=== PATIENT | male | born 1970 | race Caucasian/White ===

== ENCOUNTER 2020-11-04 15:54 | Emergency (ER) | payer OTHER ==
[~2020-11-04] VITALS: Ht 170.2 cm; Wt 50.8 kg
--- NOTE | 2020-11-04 15:54 | NUR ---
PT BIB SELF C/O ABDOMINAL PAIN AND NAUSEA/VOMTING STARTED YESTERDAY. PT IS AAOX4, NOT IN RESPIRATORY DISTRESS, HOOKED TO ELECTRICAL EQUIPMENT TESTER, KEPT RESTED AND COMFORTABLE. WILL CONTINUE TO MONITOR.
--- NOTE | 2020-11-04 16:20 | NUR ---
SEEN AND EXAMINED BY ANTHONY MOLINA
[2020-11-04] MEDS ORDERED: DICYCLOMINE HCL INJ 20 MG/2 ML AMPUL IM ONE ×2 (16:30→16:34)
[2020-11-04] MEDS ORDERED: PANTOPRAZOLE 40 MG VIAL IV ONE (16:30)
[2020-11-04] MEDS ORDERED: METOCLOPRAMIDE HCL 10 MG/2 ML VIAL IV ONE (16:30)
[2020-11-04] MEDS ORDERED: IV NS 0.9% 1,000 ML BAG IV ONE (16:30)
[2020-11-04] MEDS ORDERED: diphenhydrAMINE HCL 50 MG/ML VIAL IV ONE (16:30)
--- NOTE | 2020-11-04 16:30 | NUR ---
IV LINE ESTABLISHED BLOOD DRAWN AND SENT TO LAB.
[2020-11-04 16:35] LABS: BASOPHILS # (AUTO) 0.1 K/uL (0.0-0.2); BASOPHILS % (AUTO) 1.5 % (0.0-2.0); EOSINOPHILS % (AUTO) 2.2 % (0.0-6.0); HEMATOCRIT 29 % (39-51); HEMOGLOBIN 9.3 g/dL (13.5-17.5); LYMPHOCYTES % (AUTO) 19.5 % (20.0-44.0); MEAN CORPUSCULAR HGB CONC 32 g/dl (31.0-36.0); MEAN CORPUSCULAR VOLUME 96 fL (80-96); MONOCYTES # (AUTO) 0.3 K/uL (0.1-1.30); MONOCYTES % (AUTO) 4.9 % (2.0-12.0); NEUTROPHILS # (AUTO) 3.9 K/uL (1.8-8.9); NEUTROPHILS % (AUTO) 71.9 % (43.0-81.0); PLATELET COUNT (AUTO) 297 K/uL (150-450); RED BLOOD CELL COUNT(AUTO) 2.99 MIL/uL (4.5-6.0); WHITE BLOOD COUNT (AUTO) 5.4 K/uL (4.3-11.0)
[2020-11-04] MEDS ORDERED: METOCLOPRAMIDE HCL 10 MG/2 ML VIAL ONE (16:35)
[2020-11-04] MEDS ORDERED: PANTOPRAZOLE 40 MG VIAL ONE (16:35)
[2020-11-04] MEDS ORDERED: diphenhydrAMINE HCL 50 MG/ML VIAL ONE (16:35)
[2020-11-04] MEDS ORDERED: MORPHINE SULFATE INJ 4 MG/ML DISP.SYRIN ONE (16:41)
[2020-11-04 16:47] LABS: CALCIUM, SERUM 8.9 mg/dL (8.5-10.1); CREATININE 0.6 mg/dL (0.6-1.3); POTASSIUM 3.8 mmol/L (3.5-5.1)
[2020-11-04 16:52] LABS: ALBUMIN 2.9 g/dL (3.4-5.0); BILIRUBIN,DIRECT 0.1 mg/dL (0.0-0.2); BILIRUBIN,TOTAL 0.2 mg/dL (0.2-1.0); TOTAL PROTEIN, SERUM 6.5 g/dL (6.4-8.2)
--- NOTE | 2020-11-04 16:58 | NUR ---
PT IS WHEELED TO [facility].
[2020-11-04] MEDS ORDERED: MORPHINE SULFATE INJ 2 MG/ML DISP.SYRIN IV ONE (17:00)
[2020-11-04] MEDS ORDERED: METO-295 PO (17:55)
[2020-11-04 18:15] LABS: OCCULT BLOOD STOOL NEGATIVE (NEGATIVE)
[2020-11-04 19:02] VITALS: BP 123/68
--- NOTE | 2020-11-04 19:02 | NUR ---
IV removed. Catheter intact and site benign. Pressure and 4x4 applied to site. No bleeding noted. Patient discharged to home in stable condition. Written and verbal after care instructions given. Patient verbalizes understanding of instruction.
== END 2020-11-04 19:02 | disposition home or self-care (01) ==
LOC: ER 15:54
DX: K52.9 Noninfective gastroenteritis and colitis, unspecified (principal); D64.9 Anemia, unspecified; E11.9 Type 2 diabetes mellitus without complications
CPT/HCPCS: 36415; 74176; 80048; 80076; 82272; 82962; 83690; 85025; 96361; 96372; 96374; 96375; 99285; C9113; J0500; J1200; J2270; J2765; J7030

== ENCOUNTER 2020-12-17 17:11 | Emergency (ER) | payer OTHER ==
[~2020-12-17] VITALS: Ht 170.2 cm; Wt 55.3 kg
[~2020-12-17 17:11] MED LIST: METO-295 PO
[2020-12-17] MEDS ORDERED: IV NS 0.9% 1,000 ML IV ONE ×2 (17:30→19:30)
[2020-12-17] MEDS ORDERED: METOCLOPRAMIDE HCL 10 MG/2 ML VIAL IV ONE (17:30)
[2020-12-17] MEDS ORDERED: PANTOPRAZOLE 40 MG VIAL IV ONE (17:30)
[2020-12-17 17:40] LABS: WHITE BLOOD COUNT (AUTO) 7.9 K/uL (4.3-11.0)
[2020-12-17 17:44] LABS: BASOPHILS % (AUTO) 0.6 % (0.0-2.0); EOSINOPHILS % (AUTO) 1.5 % (0.0-6.0); HEMATOCRIT 39 % (39-51); HEMOGLOBIN 12.3 g/dL (13.5-17.5); LYMPHOCYTES # (AUTO) 0.9 K/uL (0.8-4.8); LYMPHOCYTES % (AUTO) 11.5 % (20.0-44.0); MEAN CORPUSCULAR HGB CONC 32 g/dl (31.0-36.0); MEAN CORPUSCULAR VOLUME 97 fL (80-96); MONOCYTES # (AUTO) 0.2 K/uL (0.1-1.30); MONOCYTES % (AUTO) 2.7 % (2.0-12.0); NEUTROPHILS # (AUTO) 6.7 K/uL (1.8-8.9); NEUTROPHILS % (AUTO) 83.7 % (43.0-81.0); PLATELET COUNT (AUTO) 244 K/uL (150-450); RED BLOOD CELL COUNT(AUTO) 4.01 MIL/uL (4.5-6.0)
[2020-12-17] MEDS ORDERED: METOCLOPRAMIDE HCL 10 MG/2 ML VIAL ONE (17:49)
[2020-12-17] MEDS ORDERED: PANTOPRAZOLE 40 MG VIAL ONE (17:49)
[2020-12-17 18:06] LABS: ALBUMIN 4.4 g/dL (3.4-5.0); BILIRUBIN,DIRECT 0.1 mg/dL (0.0-0.2); BILIRUBIN,TOTAL 0.2 mg/dL (0.2-1.0); CALCIUM, SERUM 9.5 mg/dL (8.5-10.1); CREATININE 1.5 mg/dL (0.6-1.3); POTASSIUM 4.9 mmol/L (3.5-5.1); TOTAL PROTEIN, SERUM 9.2 g/dL (6.4-8.2)
[2020-12-17 18:08] LABS: ALCOHOL, BLOOD < 3 mg/dL (0-0)
--- NOTE | 2020-12-17 18:12 | NUR ---
URINE COLLECTED AND SENT TO LAB
[2020-12-17] MEDS ORDERED: MORPHINE SULFATE INJ 2 MG/ML DISP.SYRIN ONE (18:21)
[2020-12-17 18:24] LABS: BILIRUBIN,URINE Negative (NEGATIVE); COLOR,URINE YELLOW (YELLOW); LEUKOCYTE ESTERASE ,URINE Negative (NEGATIVE); NITRITE, URINE Negative (NEGATIVE); PH,URINE 5.5 (5.0-8.0); PROTEIN,URINE Negative (NEGATIVE); UGLUCOSE >=1000 mg/dL (NEGATIVE); UROBILINOGEN,URINE 0.2 EU/dL (0.2)
[2020-12-17] MEDS ORDERED: MORPHINE SULFATE INJ 2 MG/ML DISP.SYRIN IV ONE (18:30)
[2020-12-17 18:38] LABS: BACTERIA,URINE Rare /HPF (None Seen); SQUAMOUS EPITHELIAL CELL,UR Few /HPF (None Seen); WBC,URINE NONE SEEN /HPF (0-3)
[2020-12-17] MEDS ORDERED: INSULIN REGULAR, HUMAN 100 UNIT/ML 10 ML VIAL SQ ONE (19:00)
[2020-12-17] MEDS ORDERED: INSU100I26 SQ (19:04)
[2020-12-17] MEDS ORDERED: HYDR-3972 PO (19:04)
[2020-12-17] MEDS ORDERED: INSU100V27 SQ (19:04)
[2020-12-17] MEDS ORDERED: METO10TA3 PO (19:04)
[2020-12-17] MEDS ORDERED: PANT40TA49 PO (19:04)
[2020-12-17] MEDS ORDERED: TRAZ-252 PO (19:04)
[2020-12-17] MEDS ORDERED: ONDA4TAB11 PO (19:04)
[2020-12-17] MEDS ORDERED: AMLO-212 PO (19:04)
[2020-12-17] MEDS ORDERED: ESCI10TA PO (19:04)
[2020-12-17] MEDS ORDERED: DULO30CA52 PO (19:04)
[2020-12-17] MEDS ORDERED: FAMO20TA8 PO (19:04)
[2020-12-17] MEDS ORDERED: INSULIN REGULAR, HUMAN 100 UNIT/ML 10 ML VIAL ONE (19:11)
[2020-12-17] MEDS ORDERED: ONDA4TAB5 PO (19:29)
[2020-12-17] MEDS ORDERED: LOPE2CAP40 PO (19:29)
[2020-12-17] MEDS ORDERED: PANT20TA2 PO (19:30)
--- NOTE | 2020-12-17 19:30 | NUR ---
RECIEVED REPORT FROM GILBERT VILLEDA.
--- NOTE | 2020-12-17 19:42 | NUR ---
Patient discharged to home in stable condition. Written and verbal after care instructions given. Patient verbalizes understanding of instruction. RX given.
[2020-12-17 19:43] VITALS: BP 122/60
== END 2020-12-17 19:43 | disposition home or self-care (01) ==
LOC: ER 17:15
DX: E11.65 Type 2 diabetes mellitus with hyperglycemia (principal); R11.10 Vomiting, unspecified; R19.7 Diarrhea, unspecified; D64.9 Anemia, unspecified; E86.0 Dehydration; I10 Essential (primary) hypertension; Z98.890 Other specified postprocedural states; Z79.899 Other long term (current) drug therapy; Z79.4 Long term (current) use of insulin
CPT/HCPCS: 36415; 80048; 80076; 80307; 80320; 81001; 83690; 84484; 85025; 93005; 96361; 96372; 96374; 96375; 99284; C9113; J1815; J2270; J2765; J7030 ×2; G0480

== ENCOUNTER 2021-06-07 13:32 | Emergency (ER) | payer OTHER ==
[~2021-06-07] VITALS: Ht 170.2 cm; Wt 59.0 kg
[~2021-06-07 13:32] MED LIST changes: +AMLO-212 PO; +DULO30CA52 PO; +ESCI10TA PO; +FAMO20TA8 PO; +HYDR-3972 PO; +INSU100I26 SQ; +INSU100V27 SQ; +LOPE2CAP40 PO; -METO-295 PO; +METO10TA3 PO; +ONDA4TAB11 PO; +ONDA4TAB5 PO; +PANT20TA2 PO; +PANT40TA49 PO; +TRAZ-252 PO
--- NOTE | 2021-06-07 13:50 | NUR ---
CHAPO 841 FROM HOME C/O BODY PAIN AND NAUSEA/VOMITING X2 DAYS. SEEN IN [facility] YESTERDAY FOR SAME CC. PT IS + COVID 5 DAYS AGO. THE PATIENT IS ALERT AND ORIENTED X4. ATTACHED TO THE MONITOR. WILL CONTINUE TO MONITOR THE PATIENT.
[2021-06-07] MEDS ORDERED: IV NS 0.9% 1,000 ML BAG IV ONE (15:30)
[2021-06-07] MEDS ORDERED: MAG HYDROX/AL HYDROX/SIMETH 30 ML UDC PO ONE (15:30)
[2021-06-07] MEDS ORDERED: FAMOTIDINE/PF INJ 20 MG/2 ML VIAL IV ONE ×2 (15:30→15:35)
[2021-06-07] MEDS ORDERED: ONDANSETRON HCL/PF 4 MG/2 ML VIAL IVP ONE (15:30)
[2021-06-07] MEDS ORDERED: LIDOCAINE VISCOUS 2% UD 15 ML UDC MM ONE (15:30)
[2021-06-07] MEDS ORDERED: ONDANSETRON HCL/PF 4 MG/2 ML VIAL ONE (15:35)
[2021-06-07] MEDS ORDERED: MAG HYDROX/AL HYDROX/SIMETH 30 ML UDC ONE (15:35)
[2021-06-07] MEDS ORDERED: LIDOCAINE VISCOUS 2% UD 15 ML UDC ONE (15:35)
--- NOTE | 2021-06-07 15:45 | NUR ---
AUTOMATIC MACHINE ATTENDANT AT THE BEDSIDE
[2021-06-07 15:49] LABS: BASOPHILS # (AUTO) 0.1 K/uL (0.0-0.2); BASOPHILS % (AUTO) 1.2 % (0.0-2.0); EOSINOPHILS % (AUTO) 2.1 % (0.0-6.0); HEMATOCRIT 35 % (39-51); HEMOGLOBIN 11.4 g/dL (13.5-17.5); LYMPHOCYTES # (AUTO) 1.3 K/uL (0.8-4.8); LYMPHOCYTES % (AUTO) 19.6 % (20.0-44.0); MEAN CORPUSCULAR HGB CONC 33 g/dl (31.0-36.0); MEAN CORPUSCULAR VOLUME 92 fL (80-96); MONOCYTES # (AUTO) 0.3 K/uL (0.1-1.30); MONOCYTES % (AUTO) 4.9 % (2.0-12.0); NEUTROPHILS # (AUTO) 4.9 K/uL (1.8-8.9); NEUTROPHILS % (AUTO) 72.2 % (43.0-81.0); PLATELET COUNT (AUTO) 226 K/uL (150-450); RED BLOOD CELL COUNT(AUTO) 3.79 MIL/uL (4.5-6.0); WHITE BLOOD COUNT (AUTO) 6.8 K/uL (4.3-11.0)
[2021-06-07 17:16] LABS: BILIRUBIN,DIRECT 0.1 mg/dL (0.0-0.2); BILIRUBIN,TOTAL 0.2 mg/dL (0.2-1.0); CALCIUM, SERUM 8.7 mg/dL (8.5-10.1); CREATININE 5.3 mg/dL (0.6-1.3); POTASSIUM 4.1 mmol/L (3.5-5.1); TOTAL PROTEIN, SERUM 6.4 g/dL (6.4-8.2)
[2021-06-07] MEDS ORDERED: ONDA4TAB5 PO ×2 (18:05→19:10)
[2021-06-07] MEDS ORDERED: FAMO20TA8 PO ×2 (18:05→19:10)
--- NOTE | 2021-06-07 18:23 | NUR ---
URINE COLLECTED AND SENT TO THE LAB
--- NOTE | 2021-06-07 18:28 | NUR ---
The patient is alert and oriented x4. Denies pain. In room air and denies SOB. Respiration regular and unlabored. IV removed. Catheter intact and site benign. Pressure and 4x4 applied to site. No bleeding noted.Patient discharged to home in stable condition. Written and verbal after care instructions given. Patient verbalizes understanding of instruction.
[2021-06-07] MEDS ORDERED: MORPHINE SULFATE INJ 2 MG/ML DISP.SYRIN IV ONE (18:30)
[2021-06-07 18:31] VITALS: BP 132/90
== END 2021-06-07 19:22 | disposition home or self-care (01) ==
LOC: ER 13:33
DX: R10.13 Epigastric pain (principal); R11.2 Nausea with vomiting, unspecified; I10 Essential (primary) hypertension; E11.43 Type 2 diabetes mellitus with diabetic autonomic (poly)neuropathy; K31.84 Gastroparesis; E11.65 Type 2 diabetes mellitus with hyperglycemia; Z86.73 Personal history of transient ischemic attack (TIA), and cerebral infarction without residual deficits; Z88.6 Allergy status to analgesic agent; Z79.891 Long term (current) use of opiate analgesic; Z79.51 Long term (current) use of inhaled steroids; Z79.4 Long term (current) use of insulin; Z79.899 Other long term (current) drug therapy
CPT/HCPCS: 36415; 71045; 80048; 80076; 83690; 85025; 85730; 96361; 96374; 96375; 99284; J2405; J3490; J7030

== ENCOUNTER 2021-12-15 17:12 | Emergency (ER) | payer OTHER ==
[~2021-12-15] VITALS: Ht 170.2 cm; Wt 54.4 kg
--- NOTE | 2021-12-15 17:15 | NUR ---
BIBRA 9 W/ C/O ABDOMINAL PAIN SINCE LAST NIGHT, RATED 9/10 ON PAIN SCALE. PT STATED HE FEELS NAUSOUS, BS 218 PER EMS. TO ER BED 10.
[2021-12-15 18:05] LABS: BASOPHILS # (AUTO) 0.1 K/uL (0.0-0.2); BASOPHILS % (AUTO) 1.9 % (0.0-2.0); EOSINOPHILS % (AUTO) 2.2 % (0.0-6.0); HEMATOCRIT 29 % (39-51); HEMOGLOBIN 9.4 g/dL (13.5-17.5); LYMPHOCYTES # (AUTO) 1.1 K/uL (0.8-4.8); LYMPHOCYTES % (AUTO) 20.1 % (20.0-44.0); MEAN CORPUSCULAR HGB CONC 33 g/dl (31.0-36.0); MEAN CORPUSCULAR VOLUME 97 fL (80-96); MONOCYTES # (AUTO) 0.3 K/uL (0.1-1.30); MONOCYTES % (AUTO) 5.7 % (2.0-12.0); NEUTROPHILS # (AUTO) 3.8 K/uL (1.8-8.9); NEUTROPHILS % (AUTO) 70.1 % (43.0-81.0); PLATELET COUNT (AUTO) 228 K/uL (150-450); RED BLOOD CELL COUNT(AUTO) 2.99 MIL/uL (4.5-6.0); WHITE BLOOD COUNT (AUTO) 5.4 K/uL (4.3-11.0)
[2021-12-15 18:24] LABS: CALCIUM, SERUM 8.3 mg/dL (8.5-10.1); POTASSIUM 5.6 mmol/L (3.5-5.1)
[2021-12-15 18:27] LABS: ALBUMIN 2.5 g/dL (3.4-5.0); BILIRUBIN,DIRECT 0.1 mg/dL (0.0-0.2); BILIRUBIN,TOTAL 0.2 mg/dL (0.2-1.0); TOTAL PROTEIN, SERUM 6.1 g/dL (6.4-8.2)
[2021-12-15] MEDS ORDERED: MAG HYDROX/AL HYDROX/SIMETH 30 ML UDC ONE (19:15)
--- NOTE | 2021-12-15 19:18 | NUR ---
PT REQUESTED MEDICATION FOR ABD PAIN; DR BA MADE AWARE W/ ORDER NOTED.
[2021-12-15] MEDS ORDERED: MAG HYDROX/AL HYDROX/SIMETH 30 ML UDC PO ONE (19:30)
--- NOTE | 2021-12-15 19:51 | NUR ---
Patient discharged to home in stable condition. Written and verbal after care instructions given. Patient verbalizes understanding of instruction.
--- NOTE | 2021-12-15 19:57 | NUR ---
[facility] ETA: 1 HOUR
--- NOTE | 2021-12-15 21:12 | NUR ---
[facility] at bed side to belt picker the pt
[2021-12-15] MEDS ORDERED: AMLODIPINE BESYLATE 5 MG TABLET ONE (21:27)
[2021-12-15] MEDS ORDERED: BENAZEPRIL HCL 10 MG TABLET ONE (21:27)
--- NOTE | 2021-12-15 21:29 | NUR ---
pt was picked up by JAMES via [facility] and discharged home
[2021-12-15] MEDS ORDERED: BENAZEPRIL HCL 10 MG TABLET PO ONE (21:30)
[2021-12-15] MEDS ORDERED: AMLODIPINE BESYLATE 5 MG TABLET PO ONE (21:30)
[2021-12-15 21:31] VITALS: BP 177/110
== END 2021-12-15 21:31 | disposition home or self-care (01) ==
LOC: ER 18:32
DX: R10.13 Epigastric pain (principal); E87.5 Hyperkalemia; M79.672 Pain in left foot; I10 Essential (primary) hypertension; E11.43 Type 2 diabetes mellitus with diabetic autonomic (poly)neuropathy; K31.84 Gastroparesis; Z86.73 Personal history of transient ischemic attack (TIA), and cerebral infarction without residual deficits; Z88.8 Allergy status to other drugs, medicaments and biological substances; Z79.4 Long term (current) use of insulin
CPT/HCPCS: 36415; 73630-TC; 80048-TC; 80076-TC; 83690-TC; 85025-TC

== ENCOUNTER 2022-05-05 15:20 | Inpatient (IN) | payer OTHER ==
[~2022-05-05] VITALS: Ht 170.2 cm; Wt 53.1 kg
--- NOTE | 2022-05-05 15:40 | NUR ---
BG 547 NOTIFED
[2022-05-05 16:21] LABS: BASOPHILS % (AUTO) 0.3 % (0.0-2.0); EOSINOPHILS % (AUTO) 0.1 % (0.0-6.0); HEMATOCRIT 34 % (39-51); HEMOGLOBIN 10.5 g/dL (13.5-17.5); LYMPHOCYTES # (AUTO) 0.9 K/uL (0.8-4.8); LYMPHOCYTES % (AUTO) 7.7 % (20.0-44.0); MEAN CORPUSCULAR HGB CONC 32 g/dl (31.0-36.0); MEAN CORPUSCULAR VOLUME 89 fL (80-96); MONOCYTES # (AUTO) 0.4 K/uL (0.1-1.30); MONOCYTES % (AUTO) 3.8 % (2.0-12.0); NEUTROPHILS % (AUTO) 88.1 % (43.0-81.0); PLATELET COUNT (AUTO) 221 K/uL (150-450); RED BLOOD CELL COUNT(AUTO) 3.76 MIL/uL (4.5-6.0); WHITE BLOOD COUNT (AUTO) 11.4 K/uL (4.3-11.0)
--- NOTE | 2022-05-05 16:59 | NUR ---
URINE SAMPLE OBTAINED AND SENT TO LAB
[2022-05-05 17:09] LABS: ALBUMIN 3.1 g/dL (3.4-5.0); BILIRUBIN,DIRECT 0.1 mg/dL (0.0-0.2); BILIRUBIN,TOTAL 0.3 mg/dL (0.2-1.0); CALCIUM, SERUM 9.8 mg/dL (8.5-10.1); CREATININE 1.5 mg/dL (0.6-1.3); POTASSIUM 5.6 mmol/L (3.5-5.1); TOTAL PROTEIN, SERUM 7.5 g/dL (6.4-8.2)
[2022-05-05] MEDS ORDERED: INSULIN REGULAR, HUMAN 100 UNIT/ML 10 ML VIAL SQ ONE (18:30)
[2022-05-05 18:46] LABS: BILIRUBIN,URINE NEGATIVE (NEGATIVE); COLOR,URINE YELLOW (YELLOW); LEUKOCYTE ESTERASE ,URINE NEGATIVE (NEGATIVE); NITRITE, URINE NEGATIVE (NEGATIVE); PROTEIN,URINE 1+ mg/dl (NEGATIVE); UGLUCOSE 3+ mg/dL (NEGATIVE); UROBILINOGEN,URINE 0.2 EU/dL (0.2)
[2022-05-05] MEDS ORDERED: TRAZODONE 50 MG TABLET PO PRN (19:00)
[2022-05-05] MEDS ORDERED: DEXTROSE 50%-WATER 50 ML DISP.SYRIN IV PRN (19:00)
[2022-05-05] MEDS ORDERED: ACETAMINOPHEN 325 MG TABLET PO PRN (19:00)
[2022-05-05 19:10] LABS: BACTERIA,URINE None seen /HPF (None Seen); SQUAMOUS EPITHELIAL CELL,UR Rare /HPF (None Seen); WBC,URINE NONE SEEN /HPF (0-3)
--- NOTE | 2022-05-05 19:10 | NUR ---
COVID SWAB TAKEN AND SENT TO LAB
--- NOTE | 2022-05-05 19:31 | NUR ---
COVID ANTIGEN SWAB COLLECTED AND SENT TO LAB
--- NOTE | 2022-05-05 19:49 | NUR ---
ROOM [facility]
[2022-05-05 20:06] LABS: CALCIUM, SERUM 9.5 mg/dL (8.5-10.1); CREATININE 1.3 mg/dL (0.6-1.3); POTASSIUM 4.9 mmol/L (3.5-5.1)
[2022-05-05] MEDS: BLOOD SUGAR DIAGNOSTIC 1 EACH STRIP IN SCH (20:29)
[2022-05-05] MEDS ORDERED: ONDANSETRON HCL/PF - ER 4 MG/2 ML VIAL IV ONE (21:00)
[2022-05-05] MEDS ORDERED: MORPHINE SULFATE INJ 2 MG/ML DISP.SYRIN IV ONE (21:00)
--- NOTE | 2022-05-05 21:38 | NUR ---
REPORT GIVEN TO GILBERT KOO
--- NOTE | 2022-05-05 21:55 | NUR ---
GETTING TRANSFERRED TO 306 UNDER ACLS.
[2022-05-05 22:00] VITALS: BP 142/101
--- NOTE | 2022-05-05 22:00 | NUR ---
car greaser notes Received Pt from ER nurse GILBERT Mtz. Pt is alert and orientedX4. On room air. No SOB. No S/s of distress noted. Pt complaining of abdominal pain and requesting morphine for pain. Tele monitor showed SR hr at 87. IV site at RAC# 20 is clean, intact and flushes well. Pt refuses skin assessment. Explained risks and benefits. Pt also refuses to have belonging check. Explained risks and benefits. Pt keep refusing. Admission order received from . Reorient Pt to the room and the use of call light. Pt verbalized understanding. Safety precautions is maintained. Bed at low position, brakes locked, side rails upX2, hob elevated, bed alarm is on and call light is within reach. Will continue to monitor.
[2022-05-05 22:10] VITALS: BP 142/101
[2022-05-05] MEDS: IV NS 0.9% 1,000 ML IV SCH (22:12)
[2022-05-05] MEDS: MORPHINE SULFATE INJ 2 MG/ML DISP.SYRIN IV PRN (22:15)
--- NOTE | 2022-05-05 23:02 | NUR ---
RN notes Pt agree to have belongings check. Pt refuses wallet check. Pt's belongings was signed by Pt. Will continue to monitor.
[2022-05-05 23:45] LABS: CALCIUM, SERUM 9.3 mg/dL (8.5-10.1); CREATININE 1.4 mg/dL (0.6-1.3); POTASSIUM 4.4 mmol/L (3.5-5.1)
[2022-05-06] VITALS: BP_SYST 130; BP_DIAS 73; BP_DIAS 75
[2022-05-06] MEDS: BLOOD SUGAR DIAGNOSTIC 1 EACH STRIP IN SCH ×6 (01:55→21:00)
[2022-05-06] MEDS: INSULIN REGULAR, HUMAN 100 UNIT/ML 3 ML VIAL SQ PRN ×6 (02:05→17:15)
[2022-05-06] MEDS: MORPHINE SULFATE INJ 2 MG/ML DISP.SYRIN IV PRN ×6 (02:19→22:41)
--- NOTE | 2022-05-06 02:21 | NUR ---
RN notes Called [facility] medical record ( [phone]) for Pt's medical record. Called two times but nobody answer the phone. will try again in the morning.
[2022-05-06] MEDS: ONDANSETRON HCL/PF 4 MG/2 ML VIAL IVP PRN ×2 (02:31→21:48)
[2022-05-06 03:23] LABS: BASOPHILS % (AUTO) 0.1 % (0.0-2.0); HEMATOCRIT 28 % (39-51); HEMOGLOBIN 9.1 g/dL (13.5-17.5); LYMPHOCYTES # (AUTO) 1.1 K/uL (0.8-4.8); LYMPHOCYTES % (AUTO) 8.8 % (20.0-44.0); MEAN CORPUSCULAR HGB CONC 32 g/dl (31.0-36.0); MEAN CORPUSCULAR VOLUME 88 fL (80-96); MONOCYTES # (AUTO) 0.4 K/uL (0.1-1.30); MONOCYTES % (AUTO) 3.4 % (2.0-12.0); NEUTROPHILS % (AUTO) 87.7 % (43.0-81.0); PLATELET COUNT (AUTO) 226 K/uL (150-450); WHITE BLOOD COUNT (AUTO) 12.5 K/uL (4.3-11.0)
[2022-05-06 03:34] LABS: ALBUMIN 2.6 g/dL (3.4-5.0); BILIRUBIN,TOTAL 0.3 mg/dL (0.2-1.0); CREATININE 1.3 mg/dL (0.6-1.3); MAGNESIUM 2.6 mg/dL (1.8-2.4); PHOSPHORUS 4.3 mg/dL (2.5-4.9); POTASSIUM 4.2 mmol/L (3.5-5.1); TOTAL PROTEIN, SERUM 6.5 g/dL (6.4-8.2)
[2022-05-06 04:56] VITALS: BP 148/80
--- NOTE | 2022-05-06 07:20 | NUR ---
RN OPENING NOTES RECEIVED PATIENT IN BED, ASLEEP, EASILY AROUSED. A/O X4, VERBALLY RESPONSIVE, NO SIGNS OF ACUTE DISTRESS NOTED. ON O2 @ 2LPM VIA N/C,BREATHING EVEN AND UNLABORED. NOTED WITH IV ACCESS ON RIGHT ANTECUBITAL AREA #20G, WITH NS @ 75 ML/HR RUNNING. NO S/SX OF PAIN OR DISCOMFORT AT THIS TIME. ON TELE MONITOR SHOWING SINUS RHYTHM WITH PVC'S, HR @68. SAFETY MEASURE IN PLACE. BED IN LOWEST AND LOCKED POSITION, SIDE RAILS UP X2, CALL LIGHT PLACED WITHIN EASY REACH. WILL CONTINUE TO MONITOR PATIENT.
[2022-05-06 08:00] VITALS: BP 137/76
[2022-05-06] MEDS: ESCITALOPRAM OXALATE (10 MG) 10 MG TABLET PO SCH (08:36)
[2022-05-06] MEDS: DULOXETINE HCL 30 MG CAPSULE.DR PO SCH ×2 (08:36→17:02)
[2022-05-06] MEDS: PANTOPRAZOLE 40 MG TABLET.DR PO SCH (08:36)
[2022-05-06] MEDS: FAMOTIDINE (20 MG) 20 MG TABLET PO SCH ×2 (08:36→17:02)
[2022-05-06] MEDS: AMLODIPINE BESYLATE 5 MG TABLET PO SCH (08:37)
[2022-05-06 08:44] LABS: CALCIUM, SERUM 9.1 mg/dL (8.5-10.1); CREATININE 1.2 mg/dL (0.6-1.3); POTASSIUM 4.2 mmol/L (3.5-5.1)
[2022-05-06] MEDS: IV NS 0.9% 1,000 ML IV SCH ×2 (10:26→21:57)
--- NOTE | 2022-05-06 10:34 | NUR ---
RN NOTE PATIENT WITH C/O ABDOMINAL PAIN, MORPHINE 2MG IVP GIVEN ORDERED. WILL CONTINUE TO MONITOR AND ASSESS PATIENT.
[2022-05-06 11:41] LABS: CALCIUM, SERUM 8.9 mg/dL (8.5-10.1); CREATININE 1.1 mg/dL (0.6-1.3); POTASSIUM 4.5 mmol/L (3.5-5.1)
[2022-05-06 15:41] LABS: CALCIUM, SERUM 8.6 mg/dL (8.5-10.1); CREATININE 1.2 mg/dL (0.6-1.3); POTASSIUM 4.1 mmol/L (3.5-5.1)
[2022-05-06 16:00] VITALS: BP 147/83
--- NOTE | 2022-05-06 18:48 | NUR ---
RN CLOSING NOTE PATIENT RESTING IN BED, A/O X4, VERBALLY RESPONSIVE, NO SIGNS OF ACUTE DISTRESS NOTED. CONTINUE ON O2 @ 2LPM VIA N/C, BREATHING EVEN AND UNLABORED. IV ACCESS ON RIGHT ANTECUBITAL AREA #20G, RUNNING WITH NS @ 75 ML/HR. NO S/SX OF PAIN OR DISCOMFORT AT THIS TIME. ON TELE MONITOR SHOWING SINUS RHYTHM HR @72. ALL DUE MEDS GIVEN TOLERATED WELL. PAIN MEDICATION GIVEN ORDERED. SAFETY MEASURE IN PLACE. BED IN LOWEST AND LOCKED POSITION, SIDE RAILS UP X2, CALL LIGHT PLACED WITHIN EASY REACH. WILL ENDORSE TO NEXT SHIFT FOR CONTINUITY OF CARE.
[2022-05-06 19:48] LABS: CALCIUM, SERUM 8.7 mg/dL (8.5-10.1); POTASSIUM 4.1 mmol/L (3.5-5.1)
--- NOTE | 2022-05-06 19:58 | NUR ---
CHIEF CONSTRUCTION INSPECTOR OPENING NOTES: RECEIVED PATIENT SLEEP IN BED COMFORTABLY, AROUSABLE TO VERBAL STIMULI, BED IN LOW POSITION, CALL LIGHTS WITHIN REACH, NO COMPLAIN OF PAIN AND DISCOMFORT AT THIS TIME, ON 02 INHALATION AT 2LPM SATURATING WELL, PATIENT ON TELE MONITOR- SR-69, IV LINE AT RAC#20 WITH ONGOING NSS@75ML/HR INFUSING WELL, PATIENT IS A/OX4 ON BED REST, ABLE TO MAKE NEEDS KNOWN, KEPT CLEAN AND DRY ALL NEEDS MET, WILL CONTINUE TO MONITOR.
[2022-05-06 20:00] VITALS: BP 156/88
--- NOTE | 2022-05-06 21:58 | NUR ---
RN NOTES: 2100 BLOOD SUGAR-98/ NO INSULIN GIVEN PER SLIDING SCALE
[2022-05-06 23:33] LABS: CALCIUM, SERUM 8.6 mg/dL (8.5-10.1); POTASSIUM 4.3 mmol/L (3.5-5.1)
[2022-05-07] VITALS: BP 157/89
[2022-05-07] MEDS: BLOOD SUGAR DIAGNOSTIC 1 EACH STRIP IN SCH ×6 (01:00→20:49)
--- NOTE | 2022-05-07 01:34 | NUR ---
RN NOTES: 0100 BLOOD SUGAR-172/ 4 UNITS INSULIN PATIENT REFUSED INSULIN SHOT EXPLAIN RISK AND BENEFITS BUT PATIENT STILE REFUSED WILL CONTINUE TO MONITOR.
[2022-05-07] MEDS: MORPHINE SULFATE INJ 2 MG/ML DISP.SYRIN IV PRN ×5 (02:51→21:39)
[2022-05-07 03:37] LABS: CALCIUM, SERUM 8.5 mg/dL (8.5-10.1); CREATININE 0.9 mg/dL (0.6-1.3); POTASSIUM 4.3 mmol/L (3.5-5.1)
[2022-05-07 04:00] VITALS: BP 160/90
[2022-05-07] MEDS: ONDANSETRON HCL/PF 4 MG/2 ML VIAL IVP PRN (04:57)
[2022-05-07] MEDS: INSULIN REGULAR, HUMAN 100 UNIT/ML 3 ML VIAL SQ PRN ×3 (05:28→17:34)
--- NOTE | 2022-05-07 05:31 | NUR ---
RN NOTES: BLOOD SUGAR-224/8 UNITS INSULIN GIVEN PER SLIDING SCALE.
[2022-05-07 06:52] LABS: CALCIUM, SERUM 8.7 mg/dL (8.5-10.1); POTASSIUM 4.3 mmol/L (3.5-5.1)
--- NOTE | 2022-05-07 07:00 | NUR ---
RN CLOSING NOTES: PATIENT SLEEP IN BED, AROUSABLE TO VERBAL STIMULI, BED IN LOW POSITION CALL LIGHTS WITHIN REACH, NO COMPLAIN OF PAIN AND DISCOMFORT AT THIS TIME, ON O2 INAHALTION AT 2LPM SATURATING WELL, PATIENT ON TELE MONITOR- SR-85 NO SYMPTOMS WAS OBSERVED, PATIENT KEPT CLEAN AND DRY ALL NEEDS MET ENDORSE TO INCOMING SHIFT.
[2022-05-07] MEDS: DULOXETINE HCL 30 MG CAPSULE.DR PO SCH ×2 (08:04→17:20)
[2022-05-07] MEDS: ESCITALOPRAM OXALATE (10 MG) 10 MG TABLET PO SCH (08:04)
[2022-05-07] MEDS: AMLODIPINE BESYLATE 5 MG TABLET PO SCH (08:04)
[2022-05-07] MEDS: FAMOTIDINE (20 MG) 20 MG TABLET PO SCH ×2 (08:04→17:20)
[2022-05-07] MEDS: PANTOPRAZOLE 40 MG TABLET.DR PO SCH (08:04)
[2022-05-07 08:26] VITALS: BP 158/90
[2022-05-07] MEDS: IV NS 0.9% 1,000 ML IV SCH (11:04)
[2022-05-07] MEDS: METOCLOPRAMIDE HCL 10 MG/2 ML VIAL IV SCH ×3 (13:54→20:31)
[2022-05-07 15:21] LABS: CALCIUM, SERUM 8.8 mg/dL (8.5-10.1); CREATININE 0.9 mg/dL (0.6-1.3); POTASSIUM 4.3 mmol/L (3.5-5.1)
[2022-05-07 16:16] VITALS: BP 154/92
[2022-05-07 18:22] LABS: CALCIUM, SERUM 8.7 mg/dL (8.5-10.1); CREATININE 0.9 mg/dL (0.6-1.3); POTASSIUM 4.3 mmol/L (3.5-5.1)
--- NOTE | 2022-05-07 18:46 | NUR ---
END OF SHIFT SUMMARY A/O X4, ON RA SATURATING WELL. ABLE TO MAKE NEEDS KNOWN. PAIN MANAGED WELL WITH MORPHINE. RTC REGLAN GIVEN, NO EPISODES OF NAUSEA AND VOMITING. SR ON TELE. IV ACCESS ON R AC #20G, NS RUNNING AT 75 ML/HR. INDEPENDENT WITH REPOSITIONING. BLOOD GLUCOSE MONITORED, INSULIN GIVEN PER MD-SLIDING SCALE. FALL PRECAUTIONS MAINTAINED AT ALL TIMES. SAFETY MEASURES MAINTAINED. BED IN LOWEST POSITION, BRAKES LOCKED. SIDE RAILS UP X2. CALL LIGHT WITHIN REACH. WILL ENDORSE CONTINUITY OF CARE TO ONCOMING SHIFT.
--- NOTE | 2022-05-07 19:30 | NUR ---
BUSINESS OFFICE TECHNOLOGY INSTRUCTOR OPENING NOTE RECEIVED PATIENT IN BED, AWAKE, ALERT AND ORIENTED. ABLE TO COMMUNICATE NEEDS WITH THE STAFFS. AFEBRILE AND NOT IN ANY FORM OF ACUTE DISTRESS. SATURATING WELL. NO SOB/WHEEZING NOTED. WITH IV ACCESS ON RAC 20G RUNNING WITH NS AT 75ML/HR. SAFETY MEASURES IN PLACE. KEPT BED IN LOCKED AND IN LOW POSITION. SIDE RAILS UPS X2. ADVISED TO USE THE CALL LIGHT WHEN IN NEED OF ASSISTANCE.
[2022-05-07 20:00] VITALS: BP 163/90
--- NOTE | 2022-05-07 20:49 | NUR ---
BAKERY DEMONSTRATOR NOTE BG CHECKED 138 AND PATIENT REFUSED COVERAGE AND SAID THAT HE DOESN'T WANT HIS SUGAR TO DROP SINCE HE HAS HX OF HYPOGLYCEMIA. GLUCOSE LEVEL WILL BE RECHECKED AGAIN AT 0100.
[2022-05-07 23:53] LABS: CALCIUM, SERUM 8.7 mg/dL (8.5-10.1); CREATININE 0.8 mg/dL (0.6-1.3); POTASSIUM 4.3 mmol/L (3.5-5.1)
[2022-05-08] VITALS: BP 135/80
[2022-05-08] MEDS: BLOOD SUGAR DIAGNOSTIC 1 EACH STRIP IN SCH ×4 (01:03→12:22)
[2022-05-08] MEDS: MORPHINE SULFATE INJ 2 MG/ML DISP.SYRIN IV PRN ×2 (02:19→06:55)
[2022-05-08 03:23] LABS: CALCIUM, SERUM 8.6 mg/dL (8.5-10.1); CREATININE 0.9 mg/dL (0.6-1.3); POTASSIUM 4.3 mmol/L (3.5-5.1)
[2022-05-08] MEDS: INSULIN REGULAR, HUMAN 100 UNIT/ML 3 ML VIAL SQ PRN ×2 (04:35→09:05)
--- NOTE | 2022-05-08 06:30 | NUR ---
LAW FIRM ADMINISTRATOR CLOSING NOTE PATIENT IN BED, AWAKE, ASLEEP BUT EASY TO AROUSE AND RESPONSIVE. ABLE TO COMMUNICATE NEEDS WITH THE STAFFS. AFEBRILE AND NOT IN ANY FORM OF ACUTE DISTRESS. SATURATING WELL ON RA. NO SOB/WHEEZING NOTED. ON TELE MONITORING WITH CURRENT READING OF SR 83. WITH IV ACCESS ON RAC 20G RUNNING WITH NS AT 75ML/HR. MONITORED FOR ANY S/SX. OF HYPO/HYPERGLYCEMIA. MEDICATED ORDEDED. SAFETY MEASURES IN PLACE. KEPT BED IN LOCKED AND IN LOW POSITION. SIDE RAILS UPS X2. ADVISED TO USE THE CALL LIGHT WHEN IN NEED OF ASSISTANCE. ALL NURSING NEEDS ATTENDED. ENDORSED TO INCOMING SHIFT FOR CONTINUITY OF CARE.
--- NOTE | 2022-05-08 07:23 | NUR ---
TANK DRIVER OPENING NOTES RECEIVED PATIENT IN BED AWAKE AND WATCHING TV. A/O X4. ABLE TO VERBALIZED NEEDS, NO C/O PAIN OR DISCOMFORTS AT THIS TIME. ON ROOM AIR, TOLERATING WELL, BREATHING EVEN AND UNLABORED. IV ACCESS ON RAC #20G RUNNING WITH NS AT 75ML/HR, NO S/S OF INFILTRATION AT SITE NOTED. TELE-MONITOR SHOWS NSR WITH HR OF 80 AT THIS TIME, NO C/O CARDIAC DISTRESS VOICED. SAFETY MEASURES IN PLACE: BED IN LOCKED AND IN LOW POSITION, SIDE RAILS UPS X2 AND CALL LIGHT WHEN IN REACH OF PT. WILL CONTINUE TO MONITOR PT.
[2022-05-08] MEDS: PANTOPRAZOLE 40 MG TABLET.DR PO SCH (07:43)
[2022-05-08] MEDS: FAMOTIDINE (20 MG) 20 MG TABLET PO SCH (08:14)
[2022-05-08] MEDS: METOCLOPRAMIDE HCL 10 MG/2 ML VIAL IV SCH ×2 (08:14→12:22)
[2022-05-08] MEDS: DULOXETINE HCL 30 MG CAPSULE.DR PO SCH (08:15)
[2022-05-08] MEDS: ESCITALOPRAM OXALATE (10 MG) 10 MG TABLET PO SCH (08:15)
[2022-05-08] MEDS: AMLODIPINE BESYLATE 5 MG TABLET PO SCH (08:18)
[2022-05-08 08:25] VITALS: BP 134/79
--- NOTE | 2022-05-08 09:05 | NUR ---
RN NOTES BLOOD SUGAR AT 0900 WAS 165 MG/DL, PT REFUSED INSULIN COVERAGE.
--- NOTE | 2022-05-08 12:30 | NUR ---
RN NOTES TELE-MONITOR BOX REMOVED AND HANDED TO FOOD INSPECTORLOYDA SOL.
--- NOTE | 2022-05-08 13:02 | NUR ---
AMA NOTES PT IS A/O X4 AND ABLE TO MAKE NEEDS KNOWN. HE VERBALIZED THAT HE WANTS TO GO AGAINST MEDICAL ADVISE. EXPLAINED TO PT ABOUT RISKS AND CONSEQUENCES OF LEAVING THE HOSPITAL, THE BENEFITS OF TREATMENT/CARE AT THIS TIME, BUT PATIENT STILL INSISTED OF LEAVING AMA. HE STATED THAT HE WANTS TO SEE AND TAKE CARE OF HIS CHILDREN AND GRANDCHILDREN THIS AFTERNOON. AMA FORM SIGNED BY PATIENT AND FILED ON HIS CHART. ALL PT'S BELONGINGS ACCOUNTED FOR AND PT SIGNED BELONGINGS LIST. IV ACCESS ON RAC G# 20 REMOVED WITH NO ACTIVE BLEEDING NOTED, DRY DRESSING APPLIED AT SITE. NAME ARMBAND REMOVED. PT LEFT UNIT @ 1250 VIA WHEELCHAIR ACCOMPANIED BY HIS DAUGHTER ARMAAN. AND AND CHARGE NURSE AWARE OF PT'S AMA.
== END 2022-05-08 12:50 | disposition left against medical advice (07) | DRG 420 ==
LOC: ER 15:46 → TELE 21:36
PROVIDERS: ADMIT Internal Medicine; ATTEND Internal Medicine
DX: E11.65 Type 2 diabetes mellitus with hyperglycemia (principal); N17.0 Acute kidney failure with tubular necrosis; E44.1 Mild protein-calorie malnutrition; R53.2 Functional quadriplegia; R64 Cachexia; E87.20 Acidosis, unspecified; E88.09 Other disorders of plasma-protein metabolism, not elsewhere classified; E11.22 Type 2 diabetes mellitus with diabetic chronic kidney disease; D64.9 Anemia, unspecified; Z20.822 Contact with and (suspected) exposure to COVID-19; Z86.73 Personal history of transient ischemic attack (TIA), and cerebral infarction without residual deficits; I12.9 Hypertensive chronic kidney disease with stage 1 through stage 4 chronic kidney disease, or unspecified chronic kidney disease; K31.84 Gastroparesis; N18.9 Chronic kidney disease, unspecified; E11.43 Type 2 diabetes mellitus with diabetic autonomic (poly)neuropathy; K44.9 Diaphragmatic hernia without obstruction or gangrene; Z53.29 Procedure and treatment not carried out because of patient's decision for other reasons; Z91.199 Patient's noncompliance with other medical treatment and regimen due to unspecified reason; Z88.6 Allergy status to analgesic agent; Z88.8 Allergy status to other drugs, medicaments and biological substances; G51.0 Bell's palsy; Z79.4 Long term (current) use of insulin; Z79.899 Other long term (current) drug therapy; E87.5 Hyperkalemia; Z99.3 Dependence on wheelchair; K21.9 Gastro-esophageal reflux disease without esophagitis
CPT/HCPCS: 36415; 76770-TC; 80048-TC; 80053-TC; 80076-TC; 81001; 82010-TC; 82962-TC; 83605-TC; 83690-TC; 83735-TC; 84100-TC; 85025-TC; 87081-TC; C9803; G0378; J1815; J2270; J2405; J2765; J7030